=== PATIENT | female | born 1955 | race Two or more races ===

== ENCOUNTER 2020-05-28 20:49 | Emergency (ER) | payer SELFPAY ==
--- NOTE | 2020-05-28 21:33 | NUR ---
PT REPORTS TAKING BP AT HOME SHOWING HYPERTENSION. HX OF HYPERTENSION AND REPORTS COMPLIANCE WITH MEDICATIONS, LISINOPRIL AND METOPROLOL. DENIES CP/PATTERSON/FLANK PAIN. PT AMBULATED STEADILY TO BATHROOM TO PROVIDE UA. FAMILY AT BEDSIDE. FAMILY/PT UPDATED TO POC (RESULTS/RECHECK) AND DEMONSTRATES UNDERSTANDING. BP/SPO2/ECG MONITORING IN PLACE. NSR ON MONITOR. UA COLLECTED AND SENT TO LAB
[2020-05-28 21:49] LABS: MICROSCOPIC NOT IND
[2020-05-28 21:55] LABS: BASOPHILS # (AUTO) 0.02 x10^3/uL (0-0.1); BASOPHILS % (AUTO) 0 % (0-1); EOSINOPHILS # (AUTO) 0.02 x10^3/uL (0-0.4); EOSINOPHILS % (AUTO) 0 % (1-7); LYMPHOCYTES # (AUTO) 1.34 x10^3/uL (1-3.4); LYMPHOCYTES % (AUTO) 20 % (22-44); MD NO; MEAN CORPUSCULAR HEMOGLOBIN 31.8 pg (27.0-34.8); MEAN CORPUSCULAR HGB CONC 34.2 g/dL (32.4-35.8); MEAN CORPUSCULAR VOLUME 92.9 fL (80-100); MEAN PLATELET VOLUME 9.9 fL (7.4-10.4); MONOCYTES # (AUTO) 0.55 x10^3/uL (0.2-0.8); MONOCYTES % (AUTO) 8 % (2-9); NEUTROPHILS # (AUTO) 4.76 x10^3/uL (1.8-6.8); NEUTROPHILS % (AUTO) 71 % (42-75); PLATELET COUNT 194 x10^3/uL (130-400); RED CELL DISTRIBUTION WIDTH 12.8 % (9.6-15.2)
[2020-05-28 22:02] LABS: ALBUMIN 3.5 g/dL (3.4-5.0); ANION GAP 4 mmol/L (5-15); CALCIUM 8.1 mg/dL (8.5-10.1); CHLORIDE 104 mmol/L (98-107); CREATININE 0.76 mg/dL (0.55-1.02)
[2020-05-28 22:06] LABS: TROPONIN I < 0.015 ng/mL (0.000-0.045)
--- NOTE | 2020-05-28 22:17 | NUR ---
PT AMBULATED STEADILY TO BATHROOM WO ASSISTANCE. DENIES CP/SOB/DIZZINESS/WEAKNESS WITH AMBULATION
[2020-05-28] MEDS ORDERED: ONDANSETRON ODT 4 MG ONE (22:27)
[2020-05-28 22:29] VITALS: BP 135/55
[2020-05-28] MEDS ORDERED: ONDANSETRON ODT 4 MG PO ONE (22:30)
--- NOTE | 2020-05-28 22:36 | NUR ---
DC EDUCATION PROVIDED, PT DEMONSTRATES UNDERSTANDING. PT AMBULATED STEADILY TO DC WITH RN AND FAMILY. FAMILY TO TRANSPORT PT HOME
--- NOTE | 2020-05-28 22:47 | NUR ---
Jimenez curran in [facility] - 05/28/20 at 2247 by JEOVANNY DC EDUCATION PROVIDED. PT DEMONSTRATES UNDERSTANDING. PT AMBUALTED STEADILY TO DC WITH ANTONINO AND
== END 2020-05-28 22:49 | disposition home or self-care (01) ==
LOC: ED 22:47
DX: I10 Essential (primary) hypertension (principal); R11.0 Nausea; F41.9 Anxiety disorder, unspecified; R05 Cough; R63.0 Anorexia; R07.9 Chest pain, unspecified; R94.31 Abnormal electrocardiogram [ECG] [EKG]; E11.9 Type 2 diabetes mellitus without complications
CPT/HCPCS: 36415; 71045; 80048; 81003; 82040; 84484; 85025; 93005; 99285; Q0162

== ENCOUNTER 2021-05-29 08:01 | Emergency (ER) | payer MEDICARE ==
[~2021-05-29] VITALS: Ht 165.1 cm; Wt 88.6 kg
--- NOTE | 2021-05-29 09:05 | NUR ---
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
[2021-05-29 09:13] LABS: MICROSCOPIC NOT IND
--- NOTE | 2021-05-29 09:36 | NUR ---
THIS IS A 66 YEAR OLD FEMALE RIGHT FLANK, RIGHT GROIN PAIN RADIATES DOWN RIGHT LEG. PAINFUL BURING URINATION SINCE LAST NIGHT ( +VACCINATION, PFIZER)
--- NOTE | 2021-05-29 10:12 | NUR ---
PT UP TO BATHROOM, STATES BURNING WHILE URINATING
[2021-05-29] MEDS ORDERED: SODIUM CHLORIDE FLUSH 10ML SYR IVF ONE (11:30)
[2021-05-29] MEDS ORDERED: MORPHINE SULFATE 4 MG/ML, 1ML IVPush PRN (11:30)
[2021-05-29] MEDS ORDERED: ONDANSETRON 2MG/ML, 2ML IVPush ONE (11:30)
[2021-05-29] MEDS ORDERED: SODIUM CHLORIDE 0.9% 1,000ML IVBOLUS ONE (11:30)
[2021-05-29] MEDS ORDERED: ONDANSETRON 2MG/ML, 2ML ONE (11:33)
[2021-05-29] MEDS ORDERED: MORPHINE SULFATE 4 MG/ML, 1ML ONE (11:34)
--- NOTE | 2021-05-29 11:47 | NUR ---
TASK RN: PIV PLACED AND MEDICATED PER MAR. VSS.
[2021-05-29 12:01] LABS: BASOPHILS % (AUTO) 0 % (0-1); EOSINOPHILS % (AUTO) 1 % (1-7); LYMPHOCYTES % (AUTO) 24 % (22-44); MONOCYTES % (AUTO) 10 % (2-9); NEUTROPHILS % (AUTO) 64 % (42-75); PLATELET COUNT 176 x10^3/uL (130-400); RED BLOOD COUNT 5.07 x10^6/uL (3.82-5.3); RED CELL DISTRIBUTION WIDTH 12.7 % (9.6-15.2)
[2021-05-29 12:09] LABS: ALBUMIN 3.7 g/dL (3.4-5.0); ANION GAP 4 mmol/L (5-15); CALCIUM 8.9 mg/dL (8.5-10.1); CHLORIDE 108 mmol/L (98-107)
[2021-05-29 12:14] LABS: ALANINE AMINOTRANSFERASE 59 U/L (12-78); ALKALINE PHOSPHATASE 75 U/L (45-117); BILIRUBIN,TOTAL 0.6 mg/dL (0.2-1.0); CREATININE 0.69 mg/dL (0.55-1.02); TOTAL PROTEIN 8.3 g/dL (6.4-8.2)
--- NOTE | 2021-05-29 12:27 | NUR ---
PT RESTING, DAUGHTER AT BS, STATES PAIN IS MUCH BETTER AT THIS TIME.
[2021-05-29] MEDS ORDERED: OMNIPAQUE 350 MG/ML, 100ML BOTTLE ONE (13:09)
[2021-05-29 14:35] VITALS: BP 133/61
--- NOTE | 2021-05-29 15:09 | NUR ---
Patient/Caregiver given discharge instructions and they have confirmed that they understand the instructions. Patient ambulatory with steady gait. NAD, all questions answered appropriately, denies additional needs at this time. No personal belongings left in room after discharge.
== END 2021-05-29 15:22 | disposition home or self-care (01) ==
LOC: ED 10:58
DX: M54.31 Sciatica, right side (principal); R10.11 Right upper quadrant pain; R07.89 Other chest pain; R11.0 Nausea; I10 Essential (primary) hypertension; E11.9 Type 2 diabetes mellitus without complications
CPT/HCPCS: 36415; 71045; 74177; 80053; 81003; 83690; 85025; 93005; 96361; 96374; 96375; 99285; J2270; J2405; J7030; Q9967